=== PATIENT | male | born 1960 | race Caucasian/White ===

== ENCOUNTER 2019-01-30 12:32 | Outpatient (CLI) | payer BC ==
--- NOTE | 2019-01-30 13:20 | BD ---
Exam: DEXA Bone Density 01/30/19 HISTORY: Concern for age-related osteoporosis without current pathological fracture. FINDINGS: Lumbar Spine: BMD (g/cm2) T-SCORE Z-SCORE L1 0.985 -0.8 -0.3 L2 1.008 -0.8 -0.2 L3 1.048 -0.5 -0.1 L4 1.033 -0.5 -0.1 L1-L4 1.020 -0.6 -0.1 Femoral Neck: 0.673 -1.9 -1.0 Total Femur: 1.031 0.0 0.4 The ten year fracture risk for a major osteoporotic fracture is 12% and for hip fracture is 0.9%. Impression: Osteopenia. POS: OFF
== END 2019-01-30 12:33 | disposition home or self-care (01) ==
LOC: BICMAMMO 12:32
PROVIDERS: ATTEND Internal Medicine Rheumatology
DX: M81.0 Age-related osteoporosis without current pathological fracture (principal); M85.859 Other specified disorders of bone density and structure, unspecified thigh
CPT/HCPCS: 77080

== ENCOUNTER 2020-01-31 06:29 | Outpatient (CLI) | payer BC, OTHER ==
[2020-01-31 14:11] LABS: Mean Corpuscular HGB CONC 34.7 g/dL (32.0-36.0); Mean Corpuscular Hemoglobin 37.6 pg (27.0-31.0); Mean Platelet Volume 8.1 fL (7.4-10.4); Platelet Count 206 thou/uL (130-400); RBC Distribution Width 11.8 % (11.5-14.5); Red Blood Cell (RBC) Count 3.73 mill/uL (4.70-6.10); White Blood Cell (WBC) Count 9.4 thou/uL (4.8-10.8)
[2020-01-31 14:15] LABS: PTT 29.7 sec (22.9-36.1); Prothrombin Time 12.9 sec (12.0-14.7)
[2020-01-31 14:44] LABS: Anion Gap 17 mmol/L (10-20); BUN (Urea Nitrogen) 18 mg/dL (8.4-25.7); Calc. Creatinine Clearance 0 mL/min (70-130); Calcium 8.8 mg/dL (7.8-10.44); Carbon Dioxide 23 mmol/L (22-29); Chloride 107 mmol/L (98-107); Estimated GFR-MDRD 56; Glucose 83 mg/dL (70-105); Potassium 4.8 mmol/L (3.5-5.1); Sodium 142 mmol/L (136-145)
[2020-02-01 14:47] LABS: SARS-CoV-2 MS2 Positive; SARS-CoV-2 N Gene Negative; SARS-CoV-2 S Gene Negative; SARS-CoV-2 by NAA Not Detected (NotDetected); SARS-CoV-2 orf1ab Negative
--- NOTE | 2020-02-03 15:39 | EKG ---
Test Reason : Blood Pressure : / mmHG Vent. Rate : 066 BPM Atrial Rate : 066 BPM P-R Int : 144 ms QRS Dur : 082 ms QT Int : 402 ms P-R-T Axes : 047 024 008 degrees QTc Int : 421 ms Normal sinus rhythm Normal ECG No previous ECGs available Confirmed by WILIAM CENTENO M.D. ([id number]) on 02/03/2020 3:39:07 PM Referred By: ARIADNE Confirmed By:WILIAM CENTENO M.D.
== END 2020-01-31 06:30 | disposition home or self-care (01) ==
LOC: LABBT 06:29
PROVIDERS: ATTEND Urology
DX: Z01.818 Encounter for other preprocedural examination (principal); Z20.828 Contact with and (suspected) exposure to other viral communicable diseases; N20.1 Calculus of ureter
CPT/HCPCS: 80048; 85027; 85610; 85730; 87635; 93005; 93010; U0003

== ENCOUNTER 2020-02-04 08:52 | Day surgery (SDC) | payer BC ==
[2020-02-04] MEDS ORDERED: Levofloxacin 500 mg/D5W 100 ml Premix Bag ONE (10:13)
[2020-02-04] MEDS ORDERED: Acetaminophen 500 MG TAB ONE (10:16)
[2020-02-04] MEDS ORDERED: Fentanyl 100 MCG/2 ML VIAL ONE (12:05)
[2020-02-04] MEDS ORDERED: Iothalamate Meglumine 60% 50 ML VIAL FS ONE (12:59)
[2020-02-04] MEDS ORDERED: Lidocaine 1% PF 5 ML VIAL ONE (13:49)
[2020-02-04] MEDS ORDERED: PROPOFOL 200 MG/20 ML VIAL ONE (13:49)
[2020-02-04] MEDS ORDERED: Dexamethasone 20 MG/5 ML VIAL ONE (13:49)
[2020-02-04] MEDS ORDERED: Ondansetron PF 4 MG/2 ML Vial ONE (13:49)
[2020-02-04] MEDS ORDERED: Ketorolac Tromethamine 30 MG/ML VIAL ONE (13:49)
--- NOTE | 2020-02-04 14:09 | RAD ---
Retrograde ureterogram intraoperative fluoroscopy HISTORY: Obstructing left ureteral stone. FINDINGS: Intraoperative fluoroscopy was provided for retrograde study as performed by Dr. Cotto. Spot fluoroscopic images show catheterization and opacification of a mildly distended proximal left ureter and renal collecting system. Final images show double-pigtail stent in good position with decompression of the left renal collecti ng system.
[2020-02-04] MEDS ORDERED: Oxybutynin 5 MG TAB ONE (14:34)
--- NOTE | 2020-02-04 18:32 | OP ---
DATE OF PROCEDURE: 02/04/2020 PREOPERATIVE DIAGNOSIS: Left ureteral stone. POSTOPERATIVE DIAGNOSIS: Left ureteral stone. PROCEDURES PERFORMED: Left ureteroscopy with basket extraction of stone, retrograde pyelogram, intraoperative interpretation of radiologic imaging, 6 x 26 double-J ureteral stent placement. ANESTHESIA: General. COMPLICATIONS: None. ESTIMATED BLOOD LOSS: Minimal. SPECIMEN: Left ureteral stone. DESCRIPTION OF PROCEDURE: After informed consent, the patient was taken to the operating room, transferred to the table under his own power. Anesthesia was established. A time-out was performed, showing the correct patient, site, and procedure. Preoperative antibiotics were administered. He was prepped and draped in the lithotomy position. A semi-rigid ureteroscope was advanced through the urethra into the bladder noting minimal prostate obstruction. The left ureteral orifice was cannulated with a wire, which was passed up to the level of the renal pelvis without difficulty. I was unable to place the scope alongside the wire into the left ureteral orifice and so an access sheath was passed over the wire under fluoroscopic guidance into the distal ureter allowing passive dilation of the ureteral orifice. This was then removed and the scope reinserted, which easily passed into the ureter at this point. This was guided up to the level of the mid ureter, where the stone was encountered. A basket was used to grab the stone and I was able to remove it easily from this point. This was passed off the specimen. The scope was then reinserted and retrograde pyelogram performed showing good filling of the ureter with no significant hydronephrosis. The scope was then withdrawn and a 6 x 26 double-J ureteral stent with strings attached was placed over the wire with a curl in the kidney and curl in the bladder under fluoroscopic guidance. The patient was then awoken from anesthesia, transferred back to his hospital bed and taken to PACU in stable condition, where he was discharged home upon recovery. Job ID: [id number]
== END 2020-02-04 15:49 | disposition home or self-care (01) ==
LOC: SDC 08:52
PROVIDERS: ATTEND Urology
PROC: 0T778DZ Dilation of Left Ureter with Intraluminal Device, Via Natural or Artificial Opening Endoscopic (ICD-10-PCS; principal; 2020-02-04)
DX: N20.1 Calculus of ureter (principal); L40.50 Arthropathic psoriasis, unspecified; E78.5 Hyperlipidemia, unspecified; Z79.899 Other long term (current) drug therapy
CPT/HCPCS: 74420; 82365; 88300; J1100; J1885; J1956; J2405; J2704; J3010

== ENCOUNTER 2020-10-23 09:26 | Outpatient (CLI) | payer BC | END 2020-10-23 09:27 | disposition home or self-care (01) | LOC: RAD 09:26 | PROVIDERS: ATTEND Urology | DX: Z09 Encounter for follow-up examination after completed treatment for conditions other than malignant neoplasm (principal); N20.0 Calculus of kidney | CPT/HCPCS: 74018 ==

== ENCOUNTER 2021-09-23 08:52 | Outpatient (CLI) | payer BC | END 2021-09-23 08:53 | disposition home or self-care (01) | LOC: CT 08:52 | PROVIDERS: ATTEND Urology | DX: R31.0 Gross hematuria (principal); N20.2 Calculus of kidney with calculus of ureter; N13.5 Crossing vessel and stricture of ureter without hydronephrosis; K76.9 Liver disease, unspecified | CPT/HCPCS: 74176 ==

== ENCOUNTER 2021-09-24 10:36 | Outpatient (CLI) | payer BC ==
[2021-09-24 11:44] LABS: Hemoglobin 14.9 g/dL (13.5-17.5); Mean Corpuscular HGB CONC 35.1 g/dL (32.0-36.0); Mean Corpuscular Hemoglobin 35.5 pg (27.0-33.0); Mean Platelet Volume 10.1 fl (7.4-10.4); Platelet Count 213 10x3/uL (150-450); White Blood Cell (WBC) Count 7.7 10x3/uL (3.5-10.5)
[2021-09-24 11:51] LABS: Bilirubin Neg (Negative); Blood, Urine 250 (Negative); Glucose, Urine (Dipstick) Normal (Negative); Ketone, Urine Negative (Negative); Leukocyte 25 (Negative); Nitrite Negative (Negative); Protein, Urine (Dipstick) Negative (Neg-Trace); Urobilinogen Normal mg/dL (Less than 2)
[2021-09-24 11:56] LABS: Clarity Clear (Clear)
[2021-09-24 12:07] LABS: WBC/HPF 0-3 HPF (0-3)
[2021-09-24 12:08] LABS: Bacteria/HPF None Seen HPF (None Seen); Squamous Epithelial 0-3 HPF (0-3)
[2021-09-24 12:33] LABS: Anion Gap 16 mmol/L (10-20); BUN (Urea Nitrogen) 18 mg/dL (8.4-25.7); Calc. Creatinine Clearance 0 mL/min (70-130); Calcium 8.5 mg/dL (7.8-10.44); Carbon Dioxide 26 mmol/L (23-31); Chloride 107 mmol/L (98-107); Glucose 85 mg/dL (80-115); Potassium 4.6 mmol/L (3.5-5.1); Sodium 144 mmol/L (136-145)
[2021-09-24 23:58] LABS: SARS-CoV-2 PCR by NAA Not Detected (NotDetected)
== END 2021-09-24 10:37 | disposition home or self-care (01) ==
LOC: LABBT 10:36
PROVIDERS: ATTEND Urology
DX: Z01.818 Encounter for other preprocedural examination (principal); Z20.822 Contact with and (suspected) exposure to COVID-19
CPT/HCPCS: 80048; 81001; 85027; 87086; 93005; 93010; U0003; U0005

== ENCOUNTER 2021-10-21 07:55 | Outpatient (CLI) | payer BC | END 2021-10-21 07:56 | disposition home or self-care (01) | LOC: BICRAD 07:55 | PROVIDERS: ATTEND Urology | DX: Z87.442 Personal history of urinary calculi (principal); N20.0 Calculus of kidney | CPT/HCPCS: 74018 ==

== ENCOUNTER 2023-03-23 09:19 | Outpatient (CLI) | payer BC | END 2023-03-23 09:20 | disposition home or self-care (01) | LOC: MRI 09:19 | PROVIDERS: ATTEND Physician Assistant | DX: R51.9 Headache, unspecified (principal) | CPT/HCPCS: 70553; 82565 ==

== ENCOUNTER 2023-09-20 08:01 | Outpatient (CLI) | payer BC | END 2023-09-20 08:02 | disposition home or self-care (01) | LOC: BICMAMMO 08:01 | PROVIDERS: ATTEND Physician Assistant | DX: N63.10 Unspecified lump in the right breast, unspecified quadrant (principal); N64.4 Mastodynia | CPT/HCPCS: 77066; G0279 ==

== ENCOUNTER 2024-04-29 07:14 | Emergency (ER) | payer BC ==
[2024-04-29 08:34] LABS: #Basophils 0.03 10x3/uL (0.0-0.2); %Basophils 0.2 % (0.0-1.0); %Eosinophils 0.2 % (0.0-10.0); %Lymphocytes 11.9 % (21.0-51.0); %Monocytes 10.9 % (0.0-10.0); %Neutrophils 76.5 % (42.0-75.0); Hematocrit 41.9 % (42.0-52.0); Hemoglobin 14.8 g/dL (14.0-18.0); Mean Corpuscular HGB CONC 35.3 g/dL (32.0-36.0); Mean Corpuscular Hemoglobin 34.7 pg (27.0-31.0); Mean Corpuscular Volume 98.4 fL (78.0-98.0); Mean Platelet Volume 10.6 fL (7.4-10.4); Platelet Count 210 10x3/uL (130-400); Red Blood Cell (RBC) Count 4.26 mill/uL (4.70-6.10)
[2024-04-29 08:49] LABS: ALT (SGPT) 16 U/L (8-55); AST (SGOT) 21 U/L (5-34); Albumin 3.8 g/dL (3.4-4.8); Alkaline Phosphatase 51 U/L (40-110); Anion Gap 14 mmol/L (10-20); BUN (Urea Nitrogen) 13 mg/dL (8.4-25.7); Bilirubin, Total 0.9 mg/dL (0.2-1.2); Calc. Creatinine Clearance 0 mL/min (70-130); Calcium 8.9 mg/dL (7.8-10.44); Carbon Dioxide 21 mmol/L (23-31); Chloride 107 mmol/L (98-107); Estimated GFR 55; Globulin 3.9 g/dL (2.4-3.5); Glucose 120 mg/dL (80-115); Potassium 4.2 mmol/L (3.5-5.1); Protein, Total 7.7 g/dL (5.8-8.1); Sodium 138 mmol/L (136-145)
[2024-04-29 09:43] LABS: Bacteria/HPF None Seen HPF (None Seen); Bilirubin Negative (Negative); Blood, Urine 1+ (Negative); CAUTI Indications for Culture Pelvic or flank pain; Clarity Clear (Clear); Glucose, Urine (Dipstick) Normal (Negative); Ketone, Urine 20 mg/dL (Negative); Leukocyte Negative Leu/uL (Negative); Nitrite Negative (Negative); Protein, Urine (Dipstick) 10 mg/dL (Neg-Trace); Specific Gravity, Urine 1.016 (1.002-1.036); Squamous Epithelial 0-3 HPF (0-3); Urobilinogen Normal mg/dL (Less than 2); WBC/HPF 0-3 HPF (0-3); pH, Urine 6.5 (5.0-9.0)
[2024-04-29 09:45] LABS: Urine Culture Reflex No No
== END 2024-04-29 10:35 | disposition home or self-care (01) ==
LOC: ERS 07:14
DX: N13.2 Hydronephrosis with renal and ureteral calculous obstruction (principal)
CPT/HCPCS: 36415; 74176; 80053; 81001; 85025

== ENCOUNTER 2024-05-22 14:36 | Outpatient (CLI) | payer BC ==
[2024-05-22 15:56] LABS: #Basophils 0.03 10x3/uL (0.0-0.2); %Basophils 0.3 % (0.0-1.0); %Eosinophils 2.1 % (0.0-10.0); %Lymphocytes 38.1 % (21.0-51.0); %Monocytes 11.3 % (0.0-10.0); Hematocrit 39.5 % (42.0-52.0); Hemoglobin 13.3 g/dL (14.0-18.0); Mean Corpuscular HGB CONC 33.7 g/dL (32.0-36.0); Mean Corpuscular Hemoglobin 33.6 pg (27.0-31.0); Mean Corpuscular Volume 99.7 fL (78.0-98.0); Mean Platelet Volume 10.2 fL (7.4-10.4); Platelet Count 211 10x3/uL (130-400); RBC Distribution Width 12.1 % (11.5-14.5); Red Blood Cell (RBC) Count 3.96 mill/uL (4.70-6.10)
[2024-05-22 16:03] LABS: Anion Gap 13 mmol/L (10-20); BUN (Urea Nitrogen) 23 mg/dL (8.4-25.7); Calc. Creatinine Clearance 0 mL/min (70-130); Calcium 8.5 mg/dL (7.8-10.44); Carbon Dioxide 25 mmol/L (23-31); Chloride 108 mmol/L (98-107); Estimated GFR 44; Glucose 105 mg/dL (80-115); Potassium 3.9 mmol/L (3.5-5.1); Sodium 142 mmol/L (136-145)
[2024-05-22 16:06] LABS: INR-International Normal Ratio 1.1; Prothrombin Time 13.8 sec (12.0-14.7)
[2024-05-22 16:07] LABS: PTT 26.2 sec (22.9-36.1)
[2024-05-22 16:13] LABS: Bacteria/HPF None Seen HPF (None Seen); Bilirubin Negative (Negative); Blood, Urine 1+ (Negative); Clarity Clear (Clear); Glucose, Urine (Dipstick) Normal (Negative); Ketone, Urine Negative (Negative); Leukocyte Negative Leu/uL (Negative); Nitrite Negative (Negative); Protein, Urine (Dipstick) 10 mg/dL (Neg-Trace); RBC/HPF 0-3 HPF (0-3); Squamous Epithelial None Seen HPF (0-3); Urobilinogen Normal mg/dL (Less than 2); WBC/HPF 0-3 HPF (0-3); pH, Urine 5.5 (5.0-9.0)
== END 2024-05-22 14:37 | disposition home or self-care (01) ==
LOC: LABBT 14:36
PROVIDERS: ATTEND Urology
DX: Z01.818 Encounter for other preprocedural examination (principal); R97.20 Elevated prostate specific antigen [PSA]
CPT/HCPCS: 80048; 81001; 85025; 85610; 85730; 87086; 93005; 93010

== ENCOUNTER 2024-05-31 08:09 | Day surgery (SDC) | payer BC ==
[2024-05-22 14:59] VITALS: BMI 27.7
[2024-05-31] MEDS ORDERED: Nitroglycerin 50 MG/250 ML BOT 0 ML ONE (08:33)
[2024-05-31] MEDS ORDERED: LevoFLOXacin D5W 500 mg (100 mL) BAG ONE (10:34)
[2024-05-31] MEDS ORDERED: Lidocaine 2% PF 5 ML VIAL ONE (10:35)
[2024-05-31] MEDS ORDERED: PROPOFOL 20 ML ONE (10:35)
[2024-05-31] MEDS ORDERED: fentaNYL PF 100 MCG/2 ML SYRINGE ONE (10:38)
[2024-05-31] MEDS ORDERED: Iopamidol 0 ML ONE (10:45)
[2024-05-31] MEDS ORDERED: Dexamethasone 4 mg/ml Vial ONE (11:08)
[2024-05-31] MEDS ORDERED: Ondansetron PF 4 MG/2 ML Vial ONE (11:08)
[2024-05-31] MEDS ORDERED: ePHEDrine Sulfate 50 MG/10 ML VIAL ONE (11:18)
[2024-05-31] MEDS ORDERED: Oxybutynin 5 MG TAB ONE (13:33)
[2024-05-31] MEDS ORDERED: Phenazopyridine HCl 100 MG TAB ONE (13:33)
== END 2024-05-31 14:23 | disposition home or self-care (01) ==
LOC: SDC 08:09
PROVIDERS: ATTEND Urology
PROC: 0T768DZ Dilation of Right Ureter with Intraluminal Device, Via Natural or Artificial Opening Endoscopic (ICD-10-PCS; principal; 2024-05-31)
PROC: 0TC68ZZ Extirpation of Matter from Right Ureter, Via Natural or Artificial Opening Endoscopic (ICD-10-PCS; principal; 2024-05-31)
DX: N20.2 Calculus of kidney with calculus of ureter (principal); N13.5 Crossing vessel and stricture of ureter without hydronephrosis; N52.01 Erectile dysfunction due to arterial insufficiency; I10 Essential (primary) hypertension; M19.90 Unspecified osteoarthritis, unspecified site; H91.90 Unspecified hearing loss, unspecified ear; R97.20 Elevated prostate specific antigen [PSA]; Z90.49 Acquired absence of other specified parts of digestive tract; Z79.899 Other long term (current) drug therapy
CPT/HCPCS: 74420; 82365; 88300; C1713; C1747; C1769; C2617; J1100; J1956; J2405; J2704; Q9967

== ENCOUNTER 2025-01-20 07:01 | Emergency (ER) | payer BC ==
[2025-01-20] MEDS ORDERED: Pantoprazole 40 MG VIAL ONE (08:22)
[2025-01-20] MEDS ORDERED: Famotidine/PF 20 mg/2ml Vial ONE ×2 (08:23→08:37)
[2025-01-20 08:33] LABS: #Basophils 0.03 10x3/uL (0.0-0.2); #Eosinophils 0.07 10x3/uL (0.0-0.7); #Monocytes 0.72 10x3/uL (0.11-0.59); #Neutrophils 7.28 10x3/uL (1.40-6.50); %Basophils 0.3 % (0.0-1.0); %Eosinophils 0.7 % (0.0-10.0); %Lymphocytes 23.4 % (21.0-51.0); %Monocytes 6.8 % (0.0-10.0); %Neutrophils 68.5 % (42.0-75.0); Hematocrit 46.5 % (42.0-52.0); Hemoglobin 16.0 g/dL (14.0-18.0); Mean Corpuscular Hemoglobin 33.8 pg (27.0-31.0); Mean Corpuscular Volume 98.1 fL (78.0-98.0); Platelet Count 212 10x3/uL (130-400); Red Blood Cell (RBC) Count 4.74 mill/uL (4.70-6.10); White Blood Cell (WBC) Count 10.62 10x3/uL (4.8-10.8)
[2025-01-20 08:44] LABS: ALT (SGPT) 21 U/L (Less than 45); AST (SGOT) 22 U/L (11-34); Albumin 4.2 g/dL (3.1-4.5); Alkaline Phosphatase 55 U/L (40-110); Anion Gap 13 mmol/L (10-20); BUN (Urea Nitrogen) 11 mg/dL (8.4-25.7); Bilirubin, Total 0.7 mg/dL (0.3-1.2); Calc. Creatinine Clearance 0 mL/min (70-130); Calcium 9.2 mg/dL (7.8-10.44); Carbon Dioxide 25 mmol/L (23-31); Chloride 105 mmol/L (98-107); Globulin 3.6 g/dL (2.4-3.5); Glucose 136 mg/dL (80-115); Lipase 20 U/L (8-78); Potassium 4.3 mmol/L (3.5-5.1); Sodium 139 mmol/L (136-145)
[2025-01-20 09:33] LABS: Bacteria/HPF None Seen HPF (None Seen); CAUTI Indications for Culture Pelvic or flank pain; Glucose, Urine (Dipstick) Normal (Negative); Leukocyte Negative Leu/uL (Negative); Protein, Urine (Dipstick) Negative (Neg-Trace); Specific Gravity, Urine 1.024 (1.002-1.036); WBC/HPF 0-3 HPF (0-3)
[2025-01-20 09:45] LABS: Urine Culture Reflex No No
[2025-01-20] MEDS ORDERED: Iopamidol-370 76% 500 ML MDV (1 ML CHARGE) ONE (09:47)
== END 2025-01-20 10:48 | disposition home or self-care (01) ==
LOC: ERS 07:01
DX: R10.13 Epigastric pain (principal); R31.29 Other microscopic hematuria; K31.89 Other diseases of stomach and duodenum; I10 Essential (primary) hypertension; E78.5 Hyperlipidemia, unspecified; Z79.899 Other long term (current) drug therapy
CPT/HCPCS: 74177; 80053; 81001; 83690; 84484; 85025; 93005; 96374; 96375; J1308; J2470; Q9967